=== PATIENT | female | born 1955 | race African-American/Black ===

== ENCOUNTER 2017-01-13 03:45 | Inpatient (IN) | payer BC ==
--- NOTE | ~2017-01-13 | IDS ---
Interim Discharge Summary [facility] [address] [place]. [address] NAME: IZZY FLORES : 57 STATUS : ADM IN PAT#: [id number] AGE: 61 ADM/REG DATE : 01/13/17 MR#: [id number] REPORT SERV DATE: 01/21/17 DICTATED BY: OWEN LOCKE DATE: 01/21/17 REPORT STATUS : Draft TRANSCRIBED BY: SEAN DATE: 01/21/17 ADMISSION DATE: 01/13/2017 DISCHARGE DATE: Date that my colleague will be taking over this patient is 01/22/2017. CONDITION: Condition of the so far is stable. DIAGNOSES: 1. Acute exacerbation of systolic heart failure. 2. Chronic systolic and diastolic heart failure, and cardiomyopathy with an ejection fraction of only 35%. The patient does have a nonischemic cardiomyopathy and an ejection fraction of 35% which is chronic for her. 3. Acute exacerbation of chronic obstructive pulmonary disease. This is very slowly resolving, but the patient continues to be tight in the chest and wheezy. For this the patient has been given low-dose prednisone that I have started on her at 20 mg once a day and given her inhaled corticosteroid with nebulized Pulmicort 1 mg twice a day besides the breathing treatments. 4. For her acute systolic heart failure, the patient has been restarted on IV Bumex at 1 mg every eight hours and her Bumex has been changed to IV despite knowing that her kidneys may get worse, because at this time, the patient continues to have trouble breathing, and keeps describing tightness in the chest, and intermittent fluid overload. 5. Chronic hypoxic respiratory failure for which the patient is on chronic home oxygen at 4 L/minute. 6. Chronic debility. 7. Chronic mitral regurgitation. 8. Chronic diabetes mellitus and hypertension, which are stable at this time. CONSULTATIONS: Consults obtained during this hospitalization include Cardiology consult and Renal consult. BRIEF HOSPITAL COURSE: So far, the patient is a 61-year-old patient with multiple cardiac and pulmonary issues, with history of multiple hospitalizations in the past. Hospitalized again with tightness in the chest and difficulty breathing. The patient was essentially admitted with a diagnosis of chest pain, hyperkalemia, exacerbation of COPD, and acute exacerbation of systolic heart failure. The patient was given symptomatic and supportive treatment, started on diuretics, breathing treatments, and Nephrology and Cardiology were consulted. The patient was also given Kayexalate and Lasix acutely. With all these measures the patient seemed to be improving. However, again on the day of discharge, which I was thinking she could go home on 01/21/2017, she complained of continuing difficulty breathing, wheezing, and tightness in the chest. Exam showed that the patient indeed had diffuse rales and rhonchi. Hence, I ordered a chest x-ray, and an ABG on this patient. Started her on inhaled corticosteroids, and changed her Bumex to IV Bumex and increased her dose too. Again, Nephrology continues to follow her. So, we have to watch her creatinine at this time. Either way, the patient will need IV diuretics as she does have a left Interim Discharge Summary [address] [address] NAME: IZZY FLORES : 57 STATUS : ADM IN PAT#: [id number] AGE: 61 ADM/REG DATE : 01/13/17 MR#: [id number] REPORT SERV DATE: 01/21/17 DICTATED BY: OWEN LOCKE DATE: 01/21/17 REPORT STATUS : Draft TRANSCRIBED BY: MODAbi DATE: 01/21/17 ventricular heart failure and LV dysfunction with an ejection fraction of only 35%. Besides this, the patient also has neurogenic bladder and self catheterizes herself with urinary catheters at home. While in the hospital, she has a Pham catheter. Upon discharge, we may have to DC the Pham catheter, but because of a neurogenic bladder, the patient will need a prescription for self catheterization and for self catheters at least #100 according to patient. Anyhow as of now, because of her ongoing issues with her cardiopulmonary status, the patient continues to be in the hospital. For her UTI, her urine culture has been growing greater than 100,000 colony count per mL of Klebsiella. However, as this is catheter related, I am not sure if we need to treat this at all, but as the patient is symptomatic we are going to treat her with Ancef 1 g every eight hours. The patient started receiving this on 01/17/2017, and we have continued this through 01/21/2017, so, the patient has received at least five days of IV Ancef so far. The plan is to maybe continue this for two more days and then stop. The patient may have chronically cloudy urine, because she catheterizes herself as mentioned above. This is my interim discharge summary and I will be transferring care of this patient to my colleague as of 01/22/2017. DANIELLA/SEAN Owen Locke M.D. / [id number] CC: Elba Rodgers M.D.
--- NOTE | ~2017-01-13 | DS ---
Discharge Summary [facility] [address] [place]. [address] NAME: IZZY FLORES : 57 STATUS : DIS IN PAT#: [id number] AGE: 61 ADM/REG DATE : 01/13/17 MR#: [id number] REPORT SERV DATE: 01/25/17 DICTATED BY: RACHEL NIEVES DATE: 01/24/17 REPORT STATUS : Draft TRANSCRIBED BY: SEAN DATE: 01/24/17 ADMISSION DATE: 01/13/2017 DISCHARGE DATE: 01/24/2017 DISCHARGE DIAGNOSES: 1. Acute decompensated heart failure with reduced EF. 2. Reactive airway disease. 3. Chronic hypoxic respiratory failure. 4. Acute kidney injury on chronic kidney disease stage III. 5. Chronic mitral regurgitation. 6. History of diabetes mellitus type 2. 7. History of hypertension. 8. Recurrent urinary tract infection. DISCHARGE CONDITION: Stable. HISTORY OF PRESENT ILLNESS: For detailed HPI, please make reference to Dr. Ketan Howard's dictation on 01/13/2017. In brief, this is a 61-year-old female with medical history of chronic kidney disease stage III, history of reactive airway disease, hypertension, diabetes mellitus who presented to the hospital with complaints of chest tightness, chest pain, with some associated shortness of breath. On arrival to the ER, she was found to have significantly elevated blood pressure of 191/81. Laboratory test shows potassium of 6.8. Troponin was less than 0.02. EKG showed sinus rhythm without any acute ST changes. No evidence of tall T-waves on EKG. The patient was admitted to the Hospitalist Service for management of hyperkalemia and chest pain. Hyperkalemia. The patient was started on Kayexalate with IV Lasix in the emergency room. The patient's primary solid plasterer was consulted. The patient also received insulin and dextrose in the emergency room, the patient's potassium trended down. The patient's lisinopril was discontinued which was thought to may have been a contributing factor to the patient's hyperkalemia. The patient's potassium trended down within normal limits and remained stable. Chest pain. The patient's troponin was less than 0.02. Cardiology was consulted. The patient's chest pain is more associated with congestion and less likely related to angina. Also, the patient had a previous cardiac catheterization and stress tests from previous admissions that shows nonobstructive coronaries. Hence, the patient's etiology of chest pain was less likely to be of cardiac origin per Cardiology. The patient received Dilaudid during the course of this admission and reported resolution of chest pain. No invasive cardiac intervention was done during the course of this admission. At the time of discharge, the patient had no further episodes of chest pain. Acute decompensated heart failure. The patient was also noted to have pulmonary vascular congestion. The patient was started on IV diuretics. The patient's shortness of breath continued to improve. The patient was subsequently transitioned to p.o. diuretics with good response. The patient was advised to continue p.o. diuretics and follow up with Cardiology Discharge Summary [address] [address] NAME: IZZY FLORES : 57 STATUS : DIS IN PAT#: [id number] AGE: 61 ADM/REG DATE : 01/13/17 MR#: [id number] REPORT SERV DATE: 01/25/17 DICTATED BY: RACHEL NIEVES DATE: 01/24/17 REPORT STATUS : Draft TRANSCRIBED BY: SEAN DATE: 01/24/17 as an outpatient. Urinary tract infection. During the course of this admission, the patient was found to have urinalysis that was positive for leukocyte esterase. Urine culture grew Klebsiella pneumonia which was pansensitive. The patient received IV cefazolin throughout the course of this admission. During the stay of this admission, the patient had completed seven days therapy with IV antibiotics prior to discharge. The patient had no further symptoms of dysuria or flank pain at the time of discharge. The patient was advised to continue follow up with her primary care physician. Reactive airway disease. The patient was noted to have significant wheezing. There was concern the possible COPD exacerbation may be contributing to this, however, the patient has no official diagnosis of COPD. The patient was prescribed empiric treatment with steroids with good response. No further episode of wheezing. The patient was referred to follow up with Pulmonology as an outpatient for further evaluation and testing for definitive etiology of wheezing. Agitation and restlessness. The patient had an episode of 24 hours prior to discharge where she became very restless after receiving IV magnesium. The patient claimed that the IV magnesium made her restless. There was no associated rash. There was no associated wheezing at this time. No evidence of anaphylaxis or any form of reaction to magnesium. The patient was given IV Ativan and Haldol but had no significant response. The patient demanded for IV Dilaudid. The patient was given IV Dilaudid and dramatically, all her restlessness and agitation completely resolved. It is my opinion that the patient likely has some drug-seeking behavior for IV Dilaudid. The patient was counseled extensively on side effect of chronic opioid use and chronic opioid dependence. The patient was advised to follow up with her primary care physician. At the time of discharge, no further complaints of restlessness, agitation. No nausea, no vomiting. The patient was discharged in stable condition. DISCHARGE MEDICATIONS: 1. Bumex 1 p.o. every eight hours. 2. Coreg 12.5 mg p.o. b.i.d. 3. Ferrous 300 mg p.o. b.i.d. 4. Humulin 70/30, 30 units subcu in the a.m. and 14 units at bedtime. 5. ProAir HFA 2 puffs four times a day p.r.n. 6. Combivent one inhaler spray four times a day p.r.n. DISCHARGE FOLLOWUP PLANS: 1. Follow up with primary care physician within one to two weeks of discharge. 2. Follow up with Nephrology within two to three weeks of discharge. DISCHARGE ACTIVITY: As tolerated. DISCHARGE DIET: ADA 1800 calorie diet. The above discharge plan was discussed with patient and her who was at the bedside. Discharge Summary [address] [address] NAME: IZZY FLORES : 57 STATUS : DIS IN PAT#: [id number] AGE: 61 ADM/REG DATE : 01/13/17 MR#: [id number] REPORT SERV DATE: 01/25/17 DICTATED BY: RACHEL INEVES DATE: 01/24/17 REPORT STATUS : Draft TRANSCRIBED BY: SEAN DATE: 01/24/17 The patient verbalized understanding to these above discharge plans. Greater than 35 minutes was used to prepare this patient's discharge, reconcile medication, and advise the patient on discharge plans and followup. IOO/MODL Rachel Nieves MD / [id number] CC: MD Blaine Bills M.D.
--- NOTE | ~2017-01-13 | CN ---
Consultation Report [facility] [address] [place]. [address] NAME: IZZY FLORES : 57 STATUS : ADM IN PAT#: [id number] AGE: 61 ADM/REG DATE : 01/13/17 MR#: [id number] REPORT SERV DATE: 01/14/17 DICTATED BY: DAKOTA PALMER DATE: 01/14/17 REPORT STATUS : Draft TRANSCRIBED BY: MODL DATE: 01/14/17 DATE OF CONSULTATION: 01/13/2017 REASON FOR CONSULTATION: Chest pain. HISTORY OF PRESENT ILLNESS: Ms. Flores is a very pleasant 61-year-old female, whom we have been asked to see by the Hospitalist Service for evaluation and management of chest pain. She is known to our group followed by my partner, Dr. Aden Finn for her history of a nonischemic cardiomyopathy, mild mitral regurgitation, and cardiovascular risk factors. She previously has had a heart catheterization in 2009 and subsequently in 2013 demonstrating no CAD. More recently, she had a stress test in 05/2015 that was intermediate risk due to resting cardiomyopathy, but without ischemia. She reports that on , she started experiencing more shortness of breath and a feeling of tightness in the chest. She has had these symptoms many times before and associates them with increased volume retention. Typically, she takes an extra dose of Lasix, self catheterizes herself due to her history of neurogenic bladder, and takes a bronchodilator, which often alleviate her symptoms. However, this time, her symptoms were not adequately managed and she decided to come to the ER. In the ER, her workup was notable for hyperkalemia and mild congestion, and she was admitted for management of these conditions. She was also severely hypertensive at that time. She has since been treated by the hospitalist service with Nephrology Services in consultation and her potassium has improved. She has been given multiple doses of IV diuretics with improvement in her exam clinically. At this time, she still has mild chest pain and states that is not completely resolved. She has no chest discomfort at rest or in the supine position, but does get it when walking across the room. Again, this is associated with shortness of breath. The chest discomfort does not radiate to her neck, back, or jaw. She denies any nausea, any GI upset, or any change in her stool appearance section. PAST MEDICAL HISTORY: 1. Nonischemic cardiomyopathy. 2. Heart failure with reduced ejection fraction, EF estimated at 35%. 3. Ugkh-hw-yfuwaokv mitral regurgitation on previous echo. 4. Chronic kidney disease stage 3. 5. Hypertension. 6. COPD/obstructive sleep apnea. 7. Diabetes. 8. Hypertension. 9. Peripheral artery disease. 10.Gastroesophageal reflux disease. 11.Nephrolithiasis. 12.History of GI bleed. Consultation Report [address] [place]. [address] NAME: IZZY FLORES : 57 STATUS : ADM IN PAT#: [id number] AGE: 61 ADM/REG DATE : 01/13/17 MR#: [id number] REPORT SERV DATE: 01/14/17 DICTATED BY: DAKOTA PALMER DATE: 01/14/17 REPORT STATUS : Draft TRANSCRIBED BY: SEAN DATE: 01/14/17 MEDICATIONS: Reviewed and per medical record notable for Coreg 12.5 b.i.d., Lasix 40 daily. ALLERGIES: MULTIPLE ALLERGIES AND/OR INTOLERANCE DOCUMENTED PER MEDICAL RECORD. FAMILY HISTORY: Noncontributory. SOCIAL HISTORY: The patient is and lives with her in the [facility]. She has three children and multiple grandchildren. She is on disability due to her multiple chronic conditions. REVIEW OF SYSTEMS: Per HPI, otherwise negative. PHYSICAL EXAMINATION: VITAL SIGNS: Temperature 97.6, pulse 65, blood pressure 132/63, 97% on 2 L nasal cannula. GENERAL: Well-developed and well-nourished female, appears her stated age, comfortable looking. HEENT: Sclerae anicteric. Mucous membranes are moist. NECK: Supple. CARDIOVASCULAR: Regular rate and rhythm. No murmurs are present. PULMONARY: Diminished breath sounds bilateral without wheezes or rales. ABDOMEN: Soft, nondistended, nontender. EXTREMITIES: Warm, but no edema is present. LABORATORY DATA: All reviewed, notable for WBC of 7.1, hemoglobin 9.5, hematocrit 31.0. Sodium 140, potassium 5.6, BUN 27, creatinine 1.87, albumin 2.6, troponin 0.02 x5. TSH 1.93. Compared to admission labs, potassium was 6.8 and creatinine was 1.55. STUDIES: Chest x-ray, PA and lateral, dated 01/13/2017 demonstrates cardiomegaly and mild prominence of interstitial markings. EKG demonstrates sinus rhythm, heart rate of 70, axis/intervals within normal limits. Echocardiogram, 01/14/2017, demonstrates LVEF of 35%, global hypokinesis, moderate diastolic dysfunction, normal RV size/function, no evidence of apical thrombus, no pericardial effusion, no significant change from prior study, mild MR. IMPRESSION/RECOMMENDATIONS: 1. Chest pain. 2. Heart failure with reduced ejection fraction secondary to nonischemic cardiomyopathy, acute on chronic. 3. Chronic kidney disease. 4. Hyperkalemia. 5. Reactive airway disease. 6. Chronic anemia. Regarding the patient's chest pain, she provides a history suggestive that this symptom is Consultation Report [address] [place]. [address] NAME: IZZY FLORES : 57 STATUS : ADM IN PAT#: [id number] AGE: 61 ADM/REG DATE : 01/13/17 MR#: [id number] REPORT SERV DATE: 01/14/17 DICTATED BY: DAKOTA PALMER DATE: 01/14/17 REPORT STATUS : Draft TRANSCRIBED BY: SEAN DATE: 01/14/17 more associated with congestion as opposed to angina. She has no history of atherosclerotic coronary artery disease based on prior catheterization and stress test, and her troponins are within normal limits with no ischemic changes on EKG. As such, the yield of additional ischemic testing at this time is likely to be low. Although she continues to have symptoms. She does report them to be improved compared to admission and I suspect that with ongoing management of her heart failure and control of her blood pressure, her symptoms will continue to improve. Her EKG and echocardiogram argue against pericarditis. At this time, we would continue treating with diuresis and controlling blood pressure. I see that BiDil was added, which is very appropriate given her heart failure and risk of progressive renal insufficiency with ARBs/DOMINGO inhibitors. On a good dose of Coreg with heart rate in the 60s. Recommend no change at this time. We will follow with you and provide additional management recommendations based on the patient's clinical response. ELPIDIO/SEAN Dakota Palmer MD / [id number] CC: Elba Kamara M.D.
--- NOTE | ~2017-01-13 | HP ---
History And Physical [address] [place]. [address] NAME: IZZY FLORES : 57 STATUS : ADM IN [facility]#: [id number] AGE: 61 ADM/REG DATE : 01/13/17 MR#: [id number] REPORT SERV DATE: 01/13/17 DICTATED BY: KETAN GONZALEZ DATE: 01/13/17 REPORT STATUS : Draft TRANSCRIBED BY: MODL DATE: 01/13/17 DATE OF ADMISSION: 01/13/2017 CHIEF COMPLAINT: Chest tightness, chest pain, and high potassium. HISTORY OF PRESENT ILLNESS: This is a 61-year-old -Iranian female with a history of chronic kidney disease, followed by Dr. Fernando Guerrero, her lacemaker, asthma, mitral regurgitation, diabetes mellitus, and hypertension, who presents to the emergency room at [facility] with the above-mentioned complaint. History is obtained from the patient, and reviewing data available on the [employer] system. According to Ms. Flores, she had been in the usual state of health until about a week to 10 days ago when she went for a followup with her lacemaker and they had seen hyperkalemia. It was believed that her lisinopril was contributing to this and the drug was stopped. She was asked to follow up in a few days. In the meanwhile, she started having difficulty breathing with chest tightness. She had actually gone to bed yesterday at night and while in bed and they are trying to get some sleep, started experiencing chest discomfort and tightness. Later in the night, it actually woke her, and she had to sit up and tried to use inhalers, but nothing worked, and she finally decided to come to the emergency room to be evaluated. In the emergency room, she did have hyperkalemia with an exacerbation of her asthma. Upon arrival, her blood pressure was 191/81, and Hospitalist Service was asked to admit her for further evaluation and treatment. At the time of my evaluation, she denied any orthopnea, but she did have chest pain and tightness which is substernal. No radiation or aggravating factors, not associated with diaphoresis. Pain was constant, mostly associated with her breathing, which she describes as chest tightness. She did not have any palpitations. She denied any cough, hemoptysis, night sweats, or weight loss. She denied any falls or loss of consciousness. No recent history of fevers, chills, nausea, vomiting, diarrhea, or dysuria. No other history of recent hematemesis, hematochezia, or hematuria. No history of recent travel or exposures either. PAST MEDICAL HISTORY: Significant for history of asthma, chronic systolic congestive heart failure with an ejection fraction of 35%, chronic anemia, mitral regurgitation, diabetes mellitus, and hypertension. SOCIAL HISTORY: She does not smoke, drink, or use recreational drugs. FAMILY HISTORY: Noncontributory. MEDICATIONS AT HOME: Reviewed by me in the chart today and reordered by me. REVIEW OF SYSTEMS: As in the history of present illness. All other systems were reviewed in detail and are History And Physical [address] [address] NAME: IZZY FLORES : 57 STATUS : ADM IN [facility]#: [id number] AGE: 61 ADM/REG DATE : 01/13/17 MR#: [id number] REPORT SERV DATE: 01/13/17 DICTATED BY: KETAN GONZALEZ DATE: 01/13/17 REPORT STATUS : Draft TRANSCRIBED BY: SEAN DATE: 01/13/17 quite unremarkable. PHYSICAL EXAMINATION: GENERAL: This is a pleasant 61-year-old, not in any acute distress. HEENT: Her head is atraumatic, normocephalic. She is alert, awake, oriented to time, place, and person. Pupils are equal, reacting to light, and accommodating. External ocular muscles are intact. Membranes are moist and pink. Sclerae are nonicteric. NECK: Supple with no jugular venous distention, lymphadenopathy, or thyromegaly. LUNGS: Clear to auscultation with no wheezes, rubs, or crackles. HEART: Heart sounds were regular with no murmurs, rubs, or gallops. ABDOMEN: Soft, nontender. Bowel sounds are present. There was no organomegaly. EXTREMITIES: No cyanosis, clubbing, or edema. NEUROLOGIC: Grossly intact. No focal sensory or motor deficits. Higher functions appeared intact. Gait is not examined. VITAL SIGNS: Her blood pressure upon arrival was 191/81, temperature was 96.4, pulse 68, respirations 20 a minute, and oxygen saturations were 98%, breathing 3 L of oxygen via nasal cannula. LABORATORY DATA: Reviewed on the [employer] system showed a sodium of 144, potassium was 6.8, chloride 114, CO2 of 23. BUN was 25 with a creatinine of 1.55 which is slightly up from her baseline. Blood glucose was 198 today. Troponin was 0.02 and the BNP was 223.5. CBC showed a white blood cell count of 9200, hemoglobin was 8.6, hematocrit 27.7. This was stable. Platelet count was 241,000. Urinalysis was not done today. Films of the chest x- ray were reviewed by me on the PACS today and interpreted by me. Per my interpretation, there is normal bony architecture with no cardiomegaly. Lung mahmood were clear with no lobar consolidations or pleural effusions seen. A 12-lead EKG done in the emergency room was reviewed and interpreted by me. There was normal sinus rhythm with a rate of [address] elevations. There are no changes due to her hyperkalemia as seen on the EKG. IMPRESSION: 1. Chest pain. 2. Hyperkalemia. 3. Asthma with acute exacerbation. 4. [id number] systolic congestive heart failure. 5. Chronic anemia. 6. Uncontrolled hypertension. 7. Mitral regurgitation. 8. Diabetes mellitus. PLAN: We will admit Ms. Flores to the Hospitalist Service with cardiac telemetry for close monitoring. The patient was treated with insulin infusion glucose in the ER for her hyperkalemia. She also got some Lasix. We will give her Kayexalate as well. We will go ahead and check her metabolic profile again as well. Her lisinopril was stopped by her lacemaker last , and we will go ahead and consult them to see her as well. We will maximize her bronchodilator treatments. Meanwhile, continue her supplemental oxygen therapy, especially at night for nocturnal hypoxemia. We will follow serial troponins to rule out acute coronary syndrome as well. We will give her a dose of intravenous diuretics History And Physical [address] [address] NAME: IZZY FLORES : 57 STATUS : ADM IN [facility]#: [id number] AGE: 61 ADM/REG DATE : 01/13/17 MR#: [id number] REPORT SERV DATE: 01/13/17 DICTATED BY: KETAN GONZALEZ DATE: 01/13/17 REPORT STATUS : Draft TRANSCRIBED BY: SEAN DATE: 01/13/17 cautiously and get an echocardiogram in the morning as well. Her hypertension on presentation was quite uncontrolled, especially after her lisinopril has been taken away. We will prescribe hydralazine on an as-needed basis intravenously, but since then her blood pressures have come down to 165/65. We will treat the pain with nitroglycerin transdermal application as she is allergic to almost any known pain medications. I offered to give her some Ultram, but she was not sure if she would be allergic to Ultram as well and the request of Dilaudid and she said that is the only thing she could take. However, I do not see any indication for narcotic pain medication to be used on her and said we would be better off without that. There is no history or anything in her past medical history to warrant narcotics. We will also place her on unfractionated heparin for DVT prophylaxis at this time. I have discussed the above plans with the patient. Her questions were answered and she is agreeable to the above recommendations. Hospitalist Service will be following her during her stay here. /SEAN Ketan Gonzalez M.D. / [id number] CC: Elba Kamara M.D.
--- NOTE | ~2017-01-13 | CN ---
Consultation Report [facility] [address] [place]. [address] NAME: IZZY FLORES : 57 STATUS : ADM IN PAT#: [id number] AGE: 61 ADM/REG DATE : 01/13/17 MR#: [id number] REPORT SERV DATE: 01/13/17 DICTATED BY: DATE: REPORT STATUS : Draft TRANSCRIBED BY: MODL DATE: 01/13/17 CONSULT DATE OF CONSULTATION: REASON FOR CONSULTATION: Hyperkalemia. HISTORY OF PRESENT ILLNESS: Ms. Flores is a 61-year-old black female with a history of CKD stage 3, followed in the office by Dr. Guerrero. Apparently, she had been in the office earlier in the week, told she had hyperkalemia, instructed to stop DOMINGO inhibitor and she did so. She also states she was on a low-potassium diet in the interim and then she was scheduled for a renal Doppler this coming Saturday. In the interim, she has developed shortness of breath and chest pain and presented to the emergency department. There may have been some mild CHF findings on chest x-ray. The potassium was initially 6.8, now down to 6.4, currently still having midsternal chest pain, shortness of breath no better and states she has noticed worsening edema lately to hands and legs and also blood pressures are in the 190s which is new for her. She states that they are usually in the 130s and we have been asked to see the patient in consultation. Denies any dysuria or hematuria. PAST MEDICAL HISTORY: CKD stage 3, history of hyperkalemia when I looked through the records, mitral regurgitation, diabetes, hypertension, EF of 35%, obstructive sleep apnea, peripheral artery disease, gastritis, reflux, anemia, kidney stones, and asthma. SOCIAL HISTORY: She is . No tobacco or alcohol use. FAMILY MEDICAL HISTORY: No end-stage renal disease. Positive for breast cancer, CVA, seizures, and cancer. CURRENT MEDICINES: Heparin, Coreg, albuterol, and insulin. REVIEW OF SYSTEMS: 12-point review of systems obtained, negative with the exception of that in the HPI. PHYSICAL EXAMINATION: VITAL SIGNS: Temperature 98.5, blood pressure 166/71, pulse 57, respiratory rate 18, O2 saturation is 100% on 3 L. GENERAL: This is a pleasant, cooperative, black female. She is awake, alert, and oriented x3, in no acute distress. Answers questions appropriately. HEENT: Normocephalic and atraumatic. Conjunctivae clear. Sclerae anicteric. Pupils are equal and round. Oral mucosa is moist. NECK: Supple. Carotids are brisk. Neck veins flat. No lymphadenopathy. LUNGS: Respirations are even and unlabored. Decreased bases bilaterally. HEART: Rate is regular. And faint systolic murmur. No rub or gallop. ABDOMEN: Soft and nontender. Bowel sounds active. No masses. No hepatosplenomegaly. No Consultation Report [address] [place]. [address] NAME: IZZY FLORES : 57 STATUS : ADM IN [facility]#: [id number] AGE: 61 ADM/REG DATE : 01/13/17 MR#: [id number] REPORT SERV DATE: 01/13/17 DICTATED BY: DATE: REPORT STATUS : Draft TRANSCRIBED BY: MODL DATE: 01/13/17 bruits. No CVA tenderness. BACK: Within normal limits. EXTREMITIES: No edema, cyanosis, or clubbing. SKIN: Warm, dry, and intact. No unusual rash or skin lesions. NEUROLOGIC: No focal deficits. Mood and affect, pleasant and appropriate. PERTINENT LABS AND X-RAYS: Sodium 143, potassium 6.4, chloride 113, CO2 of 27, BUN of 23, creatinine of 1.5, calcium 9, magnesium 1.8, and phosphorus 1.4. Troponin negative. TSH 1.9. BNP of 223. WBC 9, H and H 8 and 27, and platelets 241,000. IMPRESSION: 1. Hyperkalemia. 2. Chronic kidney disease stage 3. 3. Accelerated hypertension. 4. Chest pain. 5. Shortness of breath. 6. History of CHF with EF of 35%. PLAN: She is already receiving 2 doses of Kayexalate. We will add some extra diuretic for potassium as well. Recheck labs at this time and renal Doppler to evaluate for renal artery stenosis. Low-potassium diet. We will follow labs and I's and O's with you. Thank you for the consultation. CHRIS/SEAN JUAN CARLOS Saunders / [id number] CC: Elba Kamara M.D.
[2017-01-13 03:16] LABS: INTERNATIONAL NORMAL RATI 1.2 UNITS (-); PROTIME (NOT ORD) 14.8 SEC (12.0-14.5)
[2017-01-13 03:17] LABS: PARTIAL THROMBO TIME 32.7 SEC (22.5-37.2)
[2017-01-13 03:21] LABS: BASOPHILS 0.3 %; BASOPHILS ABSOLUTE 0.03 10/3/uL (0.0-0.16); EOSINOPHILS 3.9 %; EOSINOPHILS ABSOLUTE 0.36 10/3/uL (0.0-0.53); ER CBC TAT 0 Hrs 16 Mins; HEMATOCRIT 27.7 % (36.0-48.0); HEMOGLOBIN 8.6 g/dL (12.0-16.0); IMMATURE GRANULOCYTES 0.2 %; IMMATURE GRANULOCYTES ABSOLUTE 0.02 10/3/uL (0.0-0.11); LYMPHOCYTES 23.5 %; LYMPHOCYTES ABSOLUTE 2.16 10/3/uL (0.67-4.30); MEAN CORPUSCULAR HEMOGLOB 30.1 pg (26.0-34.0); MEAN CORPUSCULAR VOLUME 96.9 fL (80-100); MEAN PLATELET VOLUME 11.6 fL (9.2-13.0); MONOCYTES 8.4 %; MONOCYTES ABSOLUTE 0.77 10/3/uL (0.21-1.20); NEUTROPHILS 63.7 %; NEUTROPHILS ABSOLUTE 5.84 10/3/uL (2.02-8.40); PLATELET COUNT 241 10/3/uL (150-400); RBC DISTRIBUTION WIDTH 14.4 % (12.0-16.0); RED CELL COUNT 2.86 10/6/uL (4.0-5.6); WHITE BLOOD CELLS 9.2 10/3/uL (4.5-10.5)
[2017-01-13 03:22] LABS: MANUAL DIFF NO %
[2017-01-13 03:25] LABS: BUN (BLOOD UREA NITROGEN) 25 MG/DL (6-23); CALCIUM, SERUM 8.7 MG/DL (8.5-10.4); CHEST PAIN PROFILE TAT 0 Hrs 20 Mins; CHLORIDE, SERUM 114 MMOL/L (96-112); CO2 (CARBON DIOXIDE) 23 MMOL/L (24-34); CREATININE 1.55 MG/DL (0.55-1.02); GFR AFRICAN AMERICAN 42 ML/MIN (>=60); GFR NON AFRICAN AMERICAN 36 ML/MIN (>=60); SODIUM, SERUM 144 MMOL/L (135-148); TROPONIN I 0.02 NG/ML (<0.05)
[2017-01-13 03:26] LABS: GLUCOSE, SERUM 198 MG/DL (60-99); POTASSIUM, SERUM 6.8 MMOL/L (3.5-5.3)
[~2017-01-13 03:45] MED LIST: ALBUTEROL5 INH; AMPI500 PO; ASAB PO; ASAEC PO; BENTYL20 PO; BLOOD PRESSURE RX; BP MEDICATION; BROVANA15 MCG INH; CEFT5 PO; CHOLESTYRAM4 GM PO; CHOLESTYRAMINE; CIP5 PO; COMBIVENT INH; COMBIVENT RESPIM4 GM INH; COMBIVENT RESPIM4 GM PO; COREG12 PO; COREG25 PO; COREG6 PO; DIL2TAB PO; DIOV80 PO; DIOVAN PO; DIOVAN40 MG PO; ERY-TAB250 MG PO; FERRETTS325 MG PO; FESO4 PO; FLORASTOR250 MG PO; FOLIC PO; HALF81 PO; HUMULIN PEN SC; HUMULIN SC; HYDROCHLOROT25 MG PO; IMDUR30 PO; INSNOV7030 SC; K500 PO; L20 PO; L40 PO; L80 PO; LEVAQUIN750 MG PO; LEVSINTAB PO; LIDODERM T; LORTAB 5 PO; MACROBID PO; METOLAZONE5 MG OR; MULTIVIT/MIN PO; MVI PO; NORCO1 TAB PO; NORV5 PO; P10 PO; PEP20 PO; PR25 PO; PREVALITE4 G1 PO; PRIN10 PO; PROAIR HFA INH; PROTONIX PO; PROVENTSOL INH; SODBICAR10 PO; SPIRO25 PO; T PO; ULTRAM50 PO; VANCOCIN HCL125 MG PO; VENTOLIN HFA INH; Z5 PO; ZAROXOLYN5 MG OR; [UNRECOGNIZED DRUG - OTHER] TOP; [UNRECOGNIZED DRUG - OTHER] TOP; [UNRECOGNIZED DRUG - REMARK]
[2017-01-13] MEDS ORDERED: L40 PO (04:44)
[2017-01-13 09:13] LABS: BUN (BLOOD UREA NITROGEN) 23 MG/DL (6-23); CHLORIDE, SERUM 113 MMOL/L (96-112); CO2 (CARBON DIOXIDE) 27 MMOL/L (24-34); CREATININE 1.54 MG/DL (0.55-1.02); GFR AFRICAN AMERICAN 42 ML/MIN (>=60); GFR NON AFRICAN AMERICAN 36 ML/MIN (>=60); SODIUM, SERUM 143 MMOL/L (135-148); TROPONIN I 0.02 NG/ML (<0.05)
[2017-01-13 09:15] LABS: GLUCOSE, SERUM 135 MG/DL (60-99); PHOSPHORUS, SERUM 1.4 MG/DL (2.5-4.5); POTASSIUM, SERUM 6.4 MMOL/L (3.5-5.3)
[2017-01-13 15:58] LABS: ALBUMIN 2.9 G/DL (3.5-5.0); BUN (BLOOD UREA NITROGEN) 24 MG/DL (6-23); CALCIUM, SERUM 9.1 MG/DL (8.5-10.4); CHLORIDE, SERUM 109 MMOL/L (96-112); CO2 (CARBON DIOXIDE) 29 MMOL/L (24-34); CREATININE 1.68 MG/DL (0.55-1.02); GFR AFRICAN AMERICAN 38 ML/MIN (>=60); GFR NON AFRICAN AMERICAN 33 ML/MIN (>=60); GLUCOSE, SERUM 160 MG/DL (60-99); SODIUM, SERUM 142 MMOL/L (135-148); TROPONIN I 0.02 NG/ML (<0.05)
[2017-01-13 16:00] LABS: PHOSPHORUS, SERUM 2.1 MG/DL (2.5-4.5)
[2017-01-14 08:12] LABS: BASOPHILS 0.3 %; BASOPHILS ABSOLUTE 0.02 10/3/uL (0.0-0.16); EOSINOPHILS 4.1 %; EOSINOPHILS ABSOLUTE 0.29 10/3/uL (0.0-0.53); HEMOGLOBIN 9.5 g/dL (12.0-16.0); IMMATURE GRANULOCYTES 0.4 %; IMMATURE GRANULOCYTES ABSOLUTE 0.03 10/3/uL (0.0-0.11); LYMPHOCYTES 24.7 %; LYMPHOCYTES ABSOLUTE 1.75 10/3/uL (0.67-4.30); MEAN CORPUS HGB CONC 30.6 g/dL (32.0-36.0); MEAN CORPUSCULAR HEMOGLOB 29.8 pg (26.0-34.0); MEAN CORPUSCULAR VOLUME 97.2 fL (80-100); MEAN PLATELET VOLUME 10.8 fL (9.2-13.0); MONOCYTES 10.2 %; MONOCYTES ABSOLUTE 0.72 10/3/uL (0.21-1.20); NEUTROPHILS 60.3 %; NEUTROPHILS ABSOLUTE 4.28 10/3/uL (2.02-8.40); PLATELET COUNT 216 10/3/uL (150-400); RBC DISTRIBUTION WIDTH 14.2 % (12.0-16.0); RED CELL COUNT 3.19 10/6/uL (4.0-5.6); WHITE BLOOD CELLS 7.1 10/3/uL (4.5-10.5)
[2017-01-14 08:13] LABS: MANUAL DIFF NO %
[2017-01-14 08:38] LABS: ALBUMIN 2.6 G/DL (3.5-5.0); BUN (BLOOD UREA NITROGEN) 27 MG/DL (6-23); CALCIUM, SERUM 8.7 MG/DL (8.5-10.4); CHLORIDE, SERUM 107 MMOL/L (96-112); CO2 (CARBON DIOXIDE) 28 MMOL/L (24-34); CREATININE 1.87 MG/DL (0.55-1.02); GFR AFRICAN AMERICAN 33 ML/MIN (>=60); GFR NON AFRICAN AMERICAN 29 ML/MIN (>=60); PHOSPHORUS, SERUM 2.4 MG/DL (2.5-4.5); SODIUM, SERUM 140 MMOL/L (135-148); TROPONIN I <0.02 NG/ML (<0.05)
[2017-01-14 08:42] LABS: GLUCOSE, SERUM 217 MG/DL (60-99)
[2017-01-14 08:43] LABS: POTASSIUM, SERUM 5.8 MMOL/L (3.5-5.3)
[2017-01-14 20:13] LABS: ASCORBIC ACID (UR NOT ORDER) NEG (NEG); BILIRUBIN, URINE NEGATIVE (NEG); KETONE, URINE NEGATIVE (NEG); LEUKOCYTE ESTERASE(NOT OR MOD (NEG)
[2017-01-14 20:14] LABS: WBC (NOT ORDERED) (RFLEX) > 182 (0-5)
[2017-01-15 05:05] LABS: ALBUMIN 2.4 G/DL (3.5-5.0); CHLORIDE, SERUM 109 MMOL/L (96-112); SODIUM, SERUM 139 MMOL/L (135-148)
[2017-01-15 05:06] LABS: BUN (BLOOD UREA NITROGEN) 37 MG/DL (6-23); CO2 (CARBON DIOXIDE) 22 MMOL/L (24-34); CREATININE 2.57 MG/DL (0.55-1.02); GFR AFRICAN AMERICAN 23 ML/MIN (>=60); GFR NON AFRICAN AMERICAN 20 ML/MIN (>=60); GLUCOSE, SERUM 164 MG/DL (60-99); POTASSIUM, SERUM 5.7 MMOL/L (3.5-5.3)
[2017-01-15 05:07] LABS: PHOSPHORUS, SERUM 3.4 MG/DL (2.5-4.5)
[2017-01-15 06:17] LABS: BASOPHILS 0.2 %; BASOPHILS ABSOLUTE 0.02 10/3/uL (0.0-0.16); EOSINOPHILS ABSOLUTE 0.26 10/3/uL (0.0-0.53); HEMATOCRIT 29.9 % (36.0-48.0); HEMOGLOBIN 9.2 g/dL (12.0-16.0); IMMATURE GRANULOCYTES 0.4 %; IMMATURE GRANULOCYTES ABSOLUTE 0.03 10/3/uL (0.0-0.11); LYMPHOCYTES 24.9 %; LYMPHOCYTES ABSOLUTE 2.13 10/3/uL (0.67-4.30); MEAN CORPUS HGB CONC 30.8 g/dL (32.0-36.0); MEAN CORPUSCULAR HEMOGLOB 29.9 pg (26.0-34.0); MEAN CORPUSCULAR VOLUME 97.1 fL (80-100); MEAN PLATELET VOLUME 10.6 fL (9.2-13.0); MONOCYTES 8.4 %; MONOCYTES ABSOLUTE 0.72 10/3/uL (0.21-1.20); NEUTROPHILS 63.1 %; PLATELET COUNT 241 10/3/uL (150-400); RBC DISTRIBUTION WIDTH 14.4 % (12.0-16.0); RED CELL COUNT 3.08 10/6/uL (4.0-5.6); WHITE BLOOD CELLS 8.6 10/3/uL (4.5-10.5)
[2017-01-15 06:18] LABS: MANUAL DIFF NO %
[2017-01-15 14:37] LABS: BUN (BLOOD UREA NITROGEN) 35 MG/DL (6-23); CALCIUM, SERUM 7.8 MG/DL (8.5-10.4); CHLORIDE, SERUM 109 MMOL/L (96-112); CO2 (CARBON DIOXIDE) 28 MMOL/L (24-34); CREATININE 2.33 MG/DL (0.55-1.02); GFR AFRICAN AMERICAN 26 ML/MIN (>=60); GFR NON AFRICAN AMERICAN 22 ML/MIN (>=60); GLUCOSE, SERUM 103 MG/DL (60-99); POTASSIUM, SERUM 4.7 MMOL/L (3.5-5.3); SODIUM, SERUM 144 MMOL/L (135-148)
[2017-01-16 04:52] LABS: HEMATOCRIT 28.5 % (36.0-48.0); HEMOGLOBIN 8.3 g/dL (12.0-16.0); MEAN CORPUSCULAR HEMOGLOB 29.2 pg (26.0-34.0); MEAN PLATELET VOLUME 10.9 fL (9.2-13.0); PLATELET COUNT 183 10/3/uL (150-400); RBC DISTRIBUTION WIDTH 14.7 % (12.0-16.0); RED CELL COUNT 2.84 10/6/uL (4.0-5.6); WHITE BLOOD CELLS 9.3 10/3/uL (4.5-10.5)
[2017-01-16 04:53] LABS: MANUAL DIFF YES %; MEAN CORPUS HGB CONC 29.1 g/dL (32.0-36.0); MEAN CORPUSCULAR VOLUME 100.4 fL (80-100)
[2017-01-16 05:15] LABS: A/G RATIO 0.6 (0.7-1.9); ALBUMIN 2.5 G/DL (3.5-5.0); ALKALINE PHOSPHATASE 96 U/L (45-117); CALCIUM, SERUM 7.4 MG/DL (8.5-10.4); CHLORIDE, SERUM 112 MMOL/L (96-112); CPK 59 U/L (0-200); CREATININE 2.16 MG/DL (0.55-1.02); GFR AFRICAN AMERICAN 28 ML/MIN (>=60); GFR NON AFRICAN AMERICAN 24 ML/MIN (>=60); GLOBULIN 4.1 G/DL (2.5-4.1); PHOSPHORUS, SERUM 2.5 MG/DL (2.5-4.5); POTASSIUM, SERUM 5.2 MMOL/L (3.5-5.3); SGOT(AST) 26 U/L (5-40); SGPT(ALT) 16 U/L (5-65); SODIUM, SERUM 143 MMOL/L (135-148); TOTAL BILIRUBIN 0.2 MG/DL (0-1.2); TOTAL PROTEIN 6.6 G/DL (6.0-8.5)
[2017-01-16 05:23] LABS: BUN (BLOOD UREA NITROGEN) 39 MG/DL (6-23); CO2 (CARBON DIOXIDE) 20 MMOL/L (24-34); GLUCOSE, SERUM 147 MG/DL (60-99)
[2017-01-16 05:24] LABS: BAND NEUTROPHILS 4 %; EOSINOPHILS 2 %; EOSINOPHILS ABSOLUTE (CALC) 0.19 10/3/uL (0.0-0.53); LYMPHOCYTES 18 %; LYMPHOCYTES ABSOLUTE (CALC) 1.67 10/3/uL (0.67-4.30); MONOCYTES 1 %; MONOCYTES ABSOLUTE (CALC) 0.09 10/3/uL (0.21-1.20); NEUTROPHILS ABSOLUTE (CALC) 7.35 10/3/uL (2.02-8.40); PLATELET ESTIMATE ADQ (ADEQUATE); SEGMENTED NEUTROPHIL (0) 75 %; TOTAL NUCLEATED CELLS 100
[2017-01-16 05:25] LABS: MACROCYTES 1+ (5-10/OIF) (0-5/OIF)
[2017-01-17 06:25] LABS: BASOPHILS 0.2 %; BASOPHILS ABSOLUTE 0.02 10/3/uL (0.0-0.16); EOSINOPHILS 3.2 %; EOSINOPHILS ABSOLUTE 0.29 10/3/uL (0.0-0.53); IMMATURE GRANULOCYTES 0.2 %; IMMATURE GRANULOCYTES ABSOLUTE 0.02 10/3/uL (0.0-0.11); LYMPHOCYTES 16.5 %; LYMPHOCYTES ABSOLUTE 1.51 10/3/uL (0.67-4.30); MEAN CORPUS HGB CONC 30.2 g/dL (32.0-36.0); MEAN CORPUSCULAR HEMOGLOB 29.6 pg (26.0-34.0); MEAN CORPUSCULAR VOLUME 97.8 fL (80-100); MEAN PLATELET VOLUME 11.2 fL (9.2-13.0); MONOCYTES 11.8 %; MONOCYTES ABSOLUTE 1.08 10/3/uL (0.21-1.20); NEUTROPHILS 68.1 %; NEUTROPHILS ABSOLUTE 6.21 10/3/uL (2.02-8.40); PLATELET COUNT 179 10/3/uL (150-400); WHITE BLOOD CELLS 9.1 10/3/uL (4.5-10.5)
[2017-01-17 06:37] LABS: HEMATOCRIT 22.5 % (36.0-48.0); HEMOGLOBIN 6.8 g/dL (12.0-16.0)
[2017-01-17 06:38] LABS: MANUAL DIFF NO %
[2017-01-17 06:40] LABS: ALBUMIN 2.4 G/DL (3.5-5.0); BUN (BLOOD UREA NITROGEN) 33 MG/DL (6-23); CALCIUM, SERUM 7.9 MG/DL (8.5-10.4); CHLORIDE, SERUM 113 MMOL/L (96-112); CO2 (CARBON DIOXIDE) 23 MMOL/L (24-34); CREATININE 1.91 MG/DL (0.55-1.02); GFR AFRICAN AMERICAN 32 ML/MIN (>=60); GFR NON AFRICAN AMERICAN 28 ML/MIN (>=60); GLUCOSE, SERUM 214 MG/DL (60-99); PHOSPHORUS, SERUM 3.1 MG/DL (2.5-4.5); POTASSIUM, SERUM 4.8 MMOL/L (3.5-5.3); SODIUM, SERUM 146 MMOL/L (135-148)
[2017-01-17 07:26] LABS: HEMATOCRIT 22.2 % (36.0-48.0)
[2017-01-17 07:27] LABS: HEMOGLOBIN 6.9 g/dL (12.0-16.0)
[2017-01-17 23:58] LABS: HEMATOCRIT 27.2 % (36.0-48.0); HEMOGLOBIN 8.3 g/dL (12.0-16.0)
[2017-01-18 08:35] LABS: HEMATOCRIT 25.5 % (36.0-48.0); HEMOGLOBIN 8.1 g/dL (12.0-16.0); MANUAL DIFF YES %; MEAN CORPUS HGB CONC 31.8 g/dL (32.0-36.0); MEAN CORPUSCULAR HEMOGLOB 30.3 pg (26.0-34.0); MEAN CORPUSCULAR VOLUME 95.5 fL (80-100); MEAN PLATELET VOLUME 11.1 fL (9.2-13.0); PLATELET COUNT 170 10/3/uL (150-400); RBC DISTRIBUTION WIDTH 15.8 % (12.0-16.0); RED CELL COUNT 2.67 10/6/uL (4.0-5.6); WHITE BLOOD CELLS 9.9 10/3/uL (4.5-10.5)
[2017-01-18 09:14] LABS: EOSINOPHILS 4 %; LYMPHOCYTES 12 %; LYMPHOCYTES ABSOLUTE (CALC) 1.19 10/3/uL (0.67-4.30); MONOCYTES 6 %; MONOCYTES ABSOLUTE (CALC) 0.59 10/3/uL (0.21-1.20); NEUTROPHILS ABSOLUTE (CALC) 7.72 10/3/uL (2.02-8.40); PLATELET ESTIMATE ADQ (ADEQUATE); RBC MORPHOLOGY NORM (NORMAL); SEGMENTED NEUTROPHIL (0) 78 %; TOTAL NUCLEATED CELLS 100
[2017-01-18 10:18] LABS: BUN (BLOOD UREA NITROGEN) 36 MG/DL (6-23); CALCIUM, SERUM 8.2 MG/DL (8.5-10.4); CHLORIDE, SERUM 112 MMOL/L (96-112); CO2 (CARBON DIOXIDE) 24 MMOL/L (24-34); CREATININE 2.22 MG/DL (0.55-1.02); GFR AFRICAN AMERICAN 27 ML/MIN (>=60); GFR NON AFRICAN AMERICAN 23 ML/MIN (>=60); GLUCOSE, SERUM 195 MG/DL (60-99); POTASSIUM, SERUM 4.5 MMOL/L (3.5-5.3); SODIUM, SERUM 144 MMOL/L (135-148)
[2017-01-19 06:22] LABS: BASOPHILS 0.1 %; BASOPHILS ABSOLUTE 0.01 10/3/uL (0.0-0.16); HEMATOCRIT 24.8 % (36.0-48.0); HEMOGLOBIN 7.7 g/dL (12.0-16.0); IMMATURE GRANULOCYTES 0.4 %; IMMATURE GRANULOCYTES ABSOLUTE 0.03 10/3/uL (0.0-0.11); LYMPHOCYTES 19.5 %; LYMPHOCYTES ABSOLUTE 1.45 10/3/uL (0.67-4.30); MEAN CORPUSCULAR HEMOGLOB 30.1 pg (26.0-34.0); MEAN CORPUSCULAR VOLUME 96.9 fL (80-100); MEAN PLATELET VOLUME 12.3 fL (9.2-13.0); MONOCYTES 12.1 %; NEUTROPHILS 63.9 %; NEUTROPHILS ABSOLUTE 4.75 10/3/uL (2.02-8.40); RBC DISTRIBUTION WIDTH 15.5 % (12.0-16.0); RED CELL COUNT 2.56 10/6/uL (4.0-5.6); WHITE BLOOD CELLS 7.4 10/3/uL (4.5-10.5)
[2017-01-19 06:29] LABS: PLATELET COUNT 69 10/3/uL (150-400)
[2017-01-19 06:30] LABS: BUN (BLOOD UREA NITROGEN) 41 MG/DL (6-23); CHLORIDE, SERUM 112 MMOL/L (96-112); CO2 (CARBON DIOXIDE) 20 MMOL/L (24-34); CREATININE 2.29 MG/DL (0.55-1.02); GFR AFRICAN AMERICAN 26 ML/MIN (>=60); GFR NON AFRICAN AMERICAN 22 ML/MIN (>=60); GLUCOSE, SERUM 114 MG/DL (60-99); POTASSIUM, SERUM 4.9 MMOL/L (3.5-5.3); SODIUM, SERUM 141 MMOL/L (135-148)
[2017-01-19 07:20] LABS: BAND NEUTROPHILS 1 %; EOSINOPHILS 2 %; EOSINOPHILS ABSOLUTE (CALC) 0.15 10/3/uL (0.0-0.53); LYMPHOCYTES 16 %; LYMPHOCYTES ABSOLUTE (CALC) 1.18 10/3/uL (0.67-4.30); MONOCYTES 4 %; NEUTROPHILS ABSOLUTE (CALC) 5.77 10/3/uL (2.02-8.40); SEGMENTED NEUTROPHIL (0) 77 %; TOTAL NUCLEATED CELLS 100
[2017-01-19 07:21] LABS: PLATELET ESTIMATE DEC (ADEQUATE); RBC MORPHOLOGY NORM (NORMAL)
[2017-01-20 11:15] LABS: BASOPHILS 0.4 %; BASOPHILS ABSOLUTE 0.03 10/3/uL (0.0-0.16); EOSINOPHILS 4.6 %; EOSINOPHILS ABSOLUTE 0.39 10/3/uL (0.0-0.53); HEMOGLOBIN 8.6 g/dL (12.0-16.0); IMMATURE GRANULOCYTES 0.4 %; IMMATURE GRANULOCYTES ABSOLUTE 0.03 10/3/uL (0.0-0.11); LYMPHOCYTES 17.4 %; LYMPHOCYTES ABSOLUTE 1.46 10/3/uL (0.67-4.30); MEAN CORPUS HGB CONC 30.7 g/dL (32.0-36.0); MEAN CORPUSCULAR HEMOGLOB 29.7 pg (26.0-34.0); MEAN CORPUSCULAR VOLUME 96.6 fL (80-100); MEAN PLATELET VOLUME 11.7 fL (9.2-13.0); MONOCYTES 9.7 %; MONOCYTES ABSOLUTE 0.81 10/3/uL (0.21-1.20); NEUTROPHILS 67.5 %; NEUTROPHILS ABSOLUTE 5.67 10/3/uL (2.02-8.40); RBC DISTRIBUTION WIDTH 14.9 % (12.0-16.0); WHITE BLOOD CELLS 8.4 10/3/uL (4.5-10.5)
[2017-01-20 11:16] LABS: PLATELET COUNT 167 10/3/uL (150-400)
[2017-01-20 11:17] LABS: MANUAL DIFF NO %
[2017-01-20 13:30] LABS: BUN (BLOOD UREA NITROGEN) 39 MG/DL (6-23); CALCIUM, SERUM 8.5 MG/DL (8.5-10.4); CHLORIDE, SERUM 112 MMOL/L (96-112); CO2 (CARBON DIOXIDE) 22 MMOL/L (24-34); CREATININE 1.92 MG/DL (0.55-1.02); GFR AFRICAN AMERICAN 32 ML/MIN (>=60); GFR NON AFRICAN AMERICAN 28 ML/MIN (>=60); POTASSIUM, SERUM 4.8 MMOL/L (3.5-5.3); SODIUM, SERUM 144 MMOL/L (135-148)
[2017-01-20 13:31] LABS: GLUCOSE, SERUM 215 MG/DL (60-99)
[2017-01-21 08:25] LABS: BASOPHILS 0.2 %; BASOPHILS ABSOLUTE 0.02 10/3/uL (0.0-0.16); EOSINOPHILS 4.3 %; EOSINOPHILS ABSOLUTE 0.45 10/3/uL (0.0-0.53); HEMATOCRIT 26.6 % (36.0-48.0); HEMOGLOBIN 8.2 g/dL (12.0-16.0); IMMATURE GRANULOCYTES 0.2 %; IMMATURE GRANULOCYTES ABSOLUTE 0.02 10/3/uL (0.0-0.11); LYMPHOCYTES 16.4 %; LYMPHOCYTES ABSOLUTE 1.72 10/3/uL (0.67-4.30); MANUAL DIFF NO %; MEAN CORPUS HGB CONC 30.8 g/dL (32.0-36.0); MEAN CORPUSCULAR HEMOGLOB 30.1 pg (26.0-34.0); MEAN CORPUSCULAR VOLUME 97.8 fL (80-100); MEAN PLATELET VOLUME 10.8 fL (9.2-13.0); MONOCYTES 10.1 %; MONOCYTES ABSOLUTE 1.06 10/3/uL (0.21-1.20); NEUTROPHILS 68.8 %; NEUTROPHILS ABSOLUTE 7.19 10/3/uL (2.02-8.40); PLATELET COUNT 181 10/3/uL (150-400); RBC DISTRIBUTION WIDTH 14.8 % (12.0-16.0); RED CELL COUNT 2.72 10/6/uL (4.0-5.6); WHITE BLOOD CELLS 10.5 10/3/uL (4.5-10.5)
[2017-01-21 08:37] LABS: BUN (BLOOD UREA NITROGEN) 39 MG/DL (6-23); CALCIUM, SERUM 8.1 MG/DL (8.5-10.4); CHLORIDE, SERUM 113 MMOL/L (96-112); CO2 (CARBON DIOXIDE) 26 MMOL/L (24-34); GFR AFRICAN AMERICAN 33 ML/MIN (>=60); GFR NON AFRICAN AMERICAN 28 ML/MIN (>=60); GLUCOSE, SERUM 173 MG/DL (60-99); POTASSIUM, SERUM 5.5 MMOL/L (3.5-5.3); SODIUM, SERUM 141 MMOL/L (135-148)
[2017-01-21 08:37] LABS: ALLENS TEST Pos; BE (BASE EXCESS) -1.4 MEQ/L (0 +/- 2.5); CARBOXYHEMOGLOBIN 0.8 % (0-3); DEVICE NC; HCO3 (ACTUAL BICARBONATE) 24.6 MEQ/L (23-27); HEMOBLOGIN CONTENT 9.3 G/DL (12-16); INSTRUMENT SERIAL # 8083; METHEMOGLOBIN 0.4 % (0-3); O2 CONTENT 11.8 VOL% (18-24); PCO2 (CO2 TENSION) 47 MMHG (35-45); PO2 (O2 TENSION) 62 MMHG (79-93); SAMPLE Arterial; pH 7.34 (7.37-7.43)
[2017-01-22 05:15] LABS: CALCIUM, SERUM 8.4 MG/DL (8.5-10.4); CHLORIDE, SERUM 113 MMOL/L (96-112); CO2 (CARBON DIOXIDE) 22 MMOL/L (24-34); CREATININE 1.91 MG/DL (0.55-1.02); GFR AFRICAN AMERICAN 32 ML/MIN (>=60); GFR NON AFRICAN AMERICAN 28 ML/MIN (>=60); GLUCOSE, SERUM 155 MG/DL (60-99); SODIUM, SERUM 144 MMOL/L (135-148)
[2017-01-22 05:18] LABS: BUN (BLOOD UREA NITROGEN) 35 MG/DL (6-23)
[2017-01-22 09:10] LABS: BASOPHILS 0.2 %; BASOPHILS ABSOLUTE 0.02 10/3/uL (0.0-0.16); EOSINOPHILS 4.6 %; EOSINOPHILS ABSOLUTE 0.41 10/3/uL (0.0-0.53); HEMATOCRIT 28.1 % (36.0-48.0); HEMOGLOBIN 8.6 g/dL (12.0-16.0); IMMATURE GRANULOCYTES 0.3 %; IMMATURE GRANULOCYTES ABSOLUTE 0.03 10/3/uL (0.0-0.11); LYMPHOCYTES 17.1 %; LYMPHOCYTES ABSOLUTE 1.54 10/3/uL (0.67-4.30); MEAN CORPUS HGB CONC 30.6 g/dL (32.0-36.0); MEAN CORPUSCULAR HEMOGLOB 30.2 pg (26.0-34.0); MEAN CORPUSCULAR VOLUME 98.6 fL (80-100); MEAN PLATELET VOLUME 11.9 fL (9.2-13.0); MONOCYTES 10.3 %; MONOCYTES ABSOLUTE 0.93 10/3/uL (0.21-1.20); NEUTROPHILS 67.5 %; NEUTROPHILS ABSOLUTE 6.08 10/3/uL (2.02-8.40); PLATELET COUNT 194 10/3/uL (150-400); RBC DISTRIBUTION WIDTH 14.5 % (12.0-16.0); RED CELL COUNT 2.85 10/6/uL (4.0-5.6)
[2017-01-22 09:11] LABS: MANUAL DIFF NO %
[2017-01-23 04:36] LABS: BASOPHILS 0.3 %; BASOPHILS ABSOLUTE 0.03 10/3/uL (0.0-0.16); EOSINOPHILS 5.2 %; EOSINOPHILS ABSOLUTE 0.46 10/3/uL (0.0-0.53); HEMATOCRIT 26.1 % (36.0-48.0); HEMOGLOBIN 7.9 g/dL (12.0-16.0); IMMATURE GRANULOCYTES 0.2 %; IMMATURE GRANULOCYTES ABSOLUTE 0.02 10/3/uL (0.0-0.11); LYMPHOCYTES ABSOLUTE 1.87 10/3/uL (0.67-4.30); MEAN CORPUS HGB CONC 30.3 g/dL (32.0-36.0); MEAN CORPUSCULAR HEMOGLOB 29.9 pg (26.0-34.0); MEAN CORPUSCULAR VOLUME 98.9 fL (80-100); MEAN PLATELET VOLUME 11.5 fL (9.2-13.0); MONOCYTES 11.9 %; MONOCYTES ABSOLUTE 1.06 10/3/uL (0.21-1.20); NEUTROPHILS 61.4 %; NEUTROPHILS ABSOLUTE 5.45 10/3/uL (2.02-8.40); PLATELET COUNT 192 10/3/uL (150-400); RBC DISTRIBUTION WIDTH 14.5 % (12.0-16.0); RED CELL COUNT 2.64 10/6/uL (4.0-5.6); WHITE BLOOD CELLS 8.9 10/3/uL (4.5-10.5)
[2017-01-23 04:39] LABS: MANUAL DIFF NO %
[2017-01-23 04:49] LABS: ALBUMIN 2.7 G/DL (3.5-5.0); BUN (BLOOD UREA NITROGEN) 37 MG/DL (6-23); CALCIUM, SERUM 8.8 MG/DL (8.5-10.4); CHLORIDE, SERUM 108 MMOL/L (96-112); CREATININE 2.04 MG/DL (0.55-1.02); GFR AFRICAN AMERICAN 30 ML/MIN (>=60); GFR NON AFRICAN AMERICAN 26 ML/MIN (>=60); GLUCOSE, SERUM 147 MG/DL (60-99); PHOSPHORUS, SERUM 3.3 MG/DL (2.5-4.5); POTASSIUM, SERUM 5.1 MMOL/L (3.5-5.3); SODIUM, SERUM 142 MMOL/L (135-148)
[2017-01-23 04:51] LABS: CO2 (CARBON DIOXIDE) 28 MMOL/L (24-34)
[2017-01-23 16:27] LABS: AMPHETAMINES (NOT ORD) NEG (NEG); BARBITURATES (NOT ORDERED NEG (NEG); BENZODIAZEPINES (NOT ORD) NEG (NEG); CANNABINOIDS (THC) POS (NEG); COCAINE (NOT ORDERED) NEG (NEG); OPIATES POS (NEG); PHENCYCLIDINE(PCP) NEG (NEG); TRICYCLICS NEG (NEG)
[2017-01-23 18:07] LABS: BASOPHILS 0.3 %; BASOPHILS ABSOLUTE 0.03 10/3/uL (0.0-0.16); EOSINOPHILS 3.7 %; EOSINOPHILS ABSOLUTE 0.39 10/3/uL (0.0-0.53); HEMOGLOBIN 8.9 g/dL (12.0-16.0); IMMATURE GRANULOCYTES 0.4 %; IMMATURE GRANULOCYTES ABSOLUTE 0.04 10/3/uL (0.0-0.11); LYMPHOCYTES 14.3 %; LYMPHOCYTES ABSOLUTE 1.52 10/3/uL (0.67-4.30); MEAN CORPUS HGB CONC 30.4 g/dL (32.0-36.0); MEAN CORPUSCULAR HEMOGLOB 30.1 pg (26.0-34.0); MEAN PLATELET VOLUME 11.9 fL (9.2-13.0); MONOCYTES 9.5 %; MONOCYTES ABSOLUTE 1.01 10/3/uL (0.21-1.20); NEUTROPHILS 71.8 %; NEUTROPHILS ABSOLUTE 7.61 10/3/uL (2.02-8.40); PLATELET COUNT 194 10/3/uL (150-400); RBC DISTRIBUTION WIDTH 14.6 % (12.0-16.0); RED CELL COUNT 2.96 10/6/uL (4.0-5.6); WHITE BLOOD CELLS 10.6 10/3/uL (4.5-10.5)
[2017-01-23 18:08] LABS: HEMATOCRIT 29.3 % (36.0-48.0); MANUAL DIFF NO %
[2017-01-23 18:22] LABS: BUN (BLOOD UREA NITROGEN) 35 MG/DL (6-23); CALCIUM, SERUM 9.4 MG/DL (8.5-10.4); CHLORIDE, SERUM 108 MMOL/L (96-112); CO2 (CARBON DIOXIDE) 28 MMOL/L (24-34); CREATININE 1.85 MG/DL (0.55-1.02); GFR AFRICAN AMERICAN 34 ML/MIN (>=60); GFR NON AFRICAN AMERICAN 29 ML/MIN (>=60); GLUCOSE, SERUM 148 MG/DL (60-99); PHOSPHORUS, SERUM 3.1 MG/DL (2.5-4.5); POTASSIUM, SERUM 5.3 MMOL/L (3.5-5.3); SODIUM, SERUM 142 MMOL/L (135-148)
[2017-01-24] MEDS ORDERED: BUM1 (11:27)
[2017-01-24] MEDS ORDERED: BUM1 PO (11:28)
[2017-01-24] MEDS ORDERED: FESO4 PO (11:28)
[2017-01-24] MEDS ORDERED: PROTONIX PO (11:31)
== END 2017-01-24 12:54 | disposition home or self-care (01) | DRG 291 ==
LOC: ER 03:45 → 6NO 05:18
PROVIDERS: Emergency Medicine; Hospitalist; Internal Medicine; Internal Medicine Nephrology; Internal Medicine Pulmonary Disease; Nurse Practitioner; Nurse Practitioner Family; Registered Nurse
PROC: 30233N1 Transfusion of Nonautologous Red Blood Cells into Peripheral Vein, Percutaneous Approach (ICD-10-PCS; principal; 2017-01-17)
DX: I13.0 Hypertensive heart and chronic kidney disease with heart failure and stage 1 through stage 4 chronic kidney disease, or unspecified chronic kidney disease (principal); I50.43 Acute on chronic combined systolic (congestive) and diastolic (congestive) heart failure; J96.11 Chronic respiratory failure with hypoxia; N17.9 Acute kidney failure, unspecified; J44.1 Chronic obstructive pulmonary disease with (acute) exacerbation; N18.3 Chronic kidney disease, stage 3 (moderate); E11.42 Type 2 diabetes mellitus with diabetic polyneuropathy; E11.21 Type 2 diabetes mellitus with diabetic nephropathy; J45.901 Unspecified asthma with (acute) exacerbation; I42.8 Other cardiomyopathies; Z99.81 Dependence on supplemental oxygen; B96.1 Klebsiella pneumoniae [K. pneumoniae] as the cause of diseases classified elsewhere; E11.22 Type 2 diabetes mellitus with diabetic chronic kidney disease; E87.5 Hyperkalemia; D64.9 Anemia, unspecified; I34.0 Nonrheumatic mitral (valve) insufficiency; N31.9 Neuromuscular dysfunction of bladder, unspecified; E83.42 Hypomagnesemia; Z87.440 Personal history of urinary (tract) infections
CPT/HCPCS: 36415; 36600; 71010; 71020; 74000; 80048; 80053; 80069; 80305; 81001; 82150; 82272; 82550; 82805; 82962; 83735; 83880; 84100; 84132; 84443; 84484; 84550; 85014; 85018; 85025; 85610; 85730; 86850; 86900; 86901; 86920; 87077; 87086; 87186; 93005; 93975; 94640; 96374; 96375; 97161-GP; 97164-GP; 97165-GO; 97535-GO; 99285; A9270-GY; C8929; G8987-CK-GO; G8988-CK-GO; G8989-CK-GO; J0610; J0690; J1170; J1630; J1940; J2405; J2550; J3475; P9016; Q9957